=== PATIENT | female | born 1945 | race African-American/Black ===

== ENCOUNTER 2017-04-25 02:41 | Emergency (ER) | payer OTHER, MEDICAID ==
[~2017-04-25] VITALS: Ht 175.3 cm; Wt 45.0 kg
[~2017-04-25 02:41] MED LIST: EXCEDRIN; IMITREX; POTA10TA20 PO; VITAMIN B COMPLEX
[2017-04-25] MEDS ORDERED: ONDANSETRON HCL 4MG/2ML VIAL IV STA (03:26)
[2017-04-25] MEDS ORDERED: KETOROLAC 30MG/ML VIAL IV STA (03:26)
[2017-04-25 03:46] LABS: BASOPHILS % 0.3 % (0.0-2.0); EOSINOPHILS % 0.6 % (0.0-5.0); HEMATOCRIT. 33.9 % (36.0-48.0); HEMOGLOBIN. 11.3 g/dL (12.0-16.0); LYMPHOCYTES % 10.8 % (20.0-50.0); MEAN CORPUSCULAR HEMOGLOBIN 27.4 pg (28.0-32.0); MEAN CORPUSCULAR VOLUME 82.1 fL (81.0-99.0); MEAN PLATELET VOLUME 8.8 fl (7.4-10.4); MONOCYTES % 8.6 % (2.0-8.0); NEUTROPHILS % 79.7 % (40.0-76.0); PLATELET 234 x1000/uL (130-400); RED BLOOD CELL COUNT 4.12 mill/uL (4.2-5.4); RED CELL DISTRIBUTION WIDTH 13.8 % (11.6-14.6)
[2017-04-25 03:56] LABS: CARBON DIOXIDE 29 mEq/L (21-32); CHLORIDE 104 mEq/L (98-107)
[2017-04-25 04:58] LABS: CLARITY URINE CLOUDY (CLEAR); COLOR URINE YELLOW (YELLOW); GLUCOSE URINE NEGATIVE (NEGATIVE); KETONES URINE NEGATIVE (NEGATIVE); LEUKOCYTE ESTERASE URINE 3+ (NEGATIVE); NITRITE URINE NEGATIVE (NEGATIVE); OCCULT BLOOD URINE 3+ (NEGATIVE); PROTEIN URINE TRACE (NEGATIVE)
[2017-04-25] MEDS ORDERED: SODIUM CHLORIDE 0.9% 1,000 ML IV ONE (05:26)
[2017-04-25] MEDS ORDERED: PIPERACILLIN/TAZ 3.375G PREMIX 50 ML IV ONE (05:30)
[2017-04-25 06:36] VITALS: BP 139/84
== END 2017-04-25 07:48 | disposition short-term general hospital (02) ==
LOC: ER 03:15
DX: N39.0 Urinary tract infection, site not specified (principal); N13.9 Obstructive and reflux uropathy, unspecified; Z87.442 Personal history of urinary calculi; Z98.890 Other specified postprocedural states
CPT/HCPCS: 36415; 74176; 80053; 81001; 83605; 83690; 85025; 87040; 87077; 87086; 87186; 96365; 96375; 99285; J1885; J2405; J2543; J7030

== ENCOUNTER 2017-08-06 02:35 | Emergency (ER) | payer OTHER, MEDICAID ==
[~2017-08-06] VITALS: Ht 170.2 cm; Wt 63.0 kg
[2017-08-06] MEDS ORDERED: IBUPROFEN 600MG TABLET PO ONE (05:15)
[2017-08-06 05:46] VITALS: BP 145/92
== END 2017-08-06 06:08 | disposition home or self-care (01) ==
LOC: ER 02:44
DX: S81.851A Open bite, right lower leg, initial encounter (principal); W57.XXXA Bitten or stung by nonvenomous insect and other nonvenomous arthropods, initial encounter; Y93.89 Activity, other specified; Y92.89 Other specified places as the place of occurrence of the external cause; Y99.8 Other external cause status
CPT/HCPCS: 99282